=== PATIENT | female | born 1990 | race Caucasian/White ===

== ENCOUNTER → 2022-07-18 | Day surgery (SDC) | payer BC ==
[~2022-07-18] MED LIST: FLU VACC QS2022-23(6MOS UP)/PF 60 MCG/0.5 ML SYRINGE IM ONE; Fentanyl 100 MCG/2 ML VIAL ONE; HYDROcodone/Acetaminophen 5/325 mg Tablet PO SCH; Lidocaine 1% PF 5 ML VIAL ONE; Ondansetron PF 4 MG/2 ML Vial ONE; Sodium Bicarbonate 2.5 MEQ/5 ML VIAL ONE
[2022-07-18 10:52] VITALS: BP 144/95; TEMP 98.2
[2022-07-18 10:57] LABS: Prothrombin Time 10.6 sec (9.5-12.1)
[2022-07-18 11:27] LABS: Hemoglobin 13.4 g/dL (12.0-15.5); Mean Corpuscular Hemoglobin 32.6 pg (27.0-33.0); Mean Corpuscular Volume 90.5 fl (81.6-98.3); Mean Platelet Volume 9.6 fl (7.4-10.4); Platelet Count 272 10x3/uL (150-450); RBC Distribution Width 11.9 % (11.5-14.5); Red Blood Cell (RBC) Count 4.11 10x6/uL (3.90-5.03); White Blood Cell (WBC) Count 8.2 10x3/uL (3.5-10.5)
== END ==
LOC: CSHULT 09:32
PROVIDERS: ATTEND Physician Assistant Medical
PROC: 0F903ZX Drainage of Liver, Percutaneous Approach, Diagnostic (ICD-10-PCS; principal; 2022-07-18)
DX: K75.9 Inflammatory liver disease, unspecified (principal); K74.00 Hepatic fibrosis, unspecified; K76.0 Fatty (change of) liver, not elsewhere classified; R94.5 Abnormal results of liver function studies; K74.3 Primary biliary cirrhosis
CPT/HCPCS: 47000; 76942; 85027; 85610; 88307; 88313; J2405; J3010